=== PATIENT | female | born 1990 | race Caucasian/White ===

== ENCOUNTER → 2016-09-02 | Outpatient (CLI) | payer OTHER, MEDICAID ==
[2016-09-02 11:49] LABS: ABSOLUTE BASOPHILS # (AUTO) 0.1 10^3/uL (0.0-0.2); ABSOLUTE EOSINOPHILS # (AUTO) 0.1 10^3/uL (0.0-0.6); ABSOLUTE LYMPHOCYTES (AUTO) 1.5 10^3/uL (0.5-4.7); ABSOLUTE MONOCYTES (AUTO) 0.6 10^3/uL (0.1-1.4); ABSOLUTE NEUT (AUTO) 6.7 10^3/uL (1.7-8.2); BASOPHILS % (AUTO) 0.8 % (0-2); EOSINOPHILS % (AUTO) 1.3 % (0-6); HEMATOCRIT 41.9 % (36.0-47.0); HEMOGLOBIN 13.8 g/dL (12.0-15.5); HGB HCT DIFFERENCE -0.5; LYMPHOCYTES % (AUTO) 16.7 % (13-45); MEAN CORPUSCULAR HEMOGLOBIN 31.8 pg (27.0-33.4); MEAN CORPUSCULAR VOLUME 96 fl (80-97); MONOCYTES % (AUTO) 6.3 % (3-13); RED BLOOD COUNT 4.34 10^6/uL (3.72-5.28); RED CELL DISTRIBUTION WIDTH 14.9 % (11.5-14.0); SEGMENTED NEUTROPHILS % (AUTO) 74.9 % (42-78); WHITE BLOOD COUNT 8.9 10^3/uL (4.0-10.5)
[2016-09-02 12:22] LABS: CHOLESTEROL 184.29 mg/dL (0-200); Direct HDL 95 mg/dL (>40); GLUCOSE 74 mg/dL (75-110); TRIGLYCERIDES 163 mg/dL (<150); URIC ACID 7.3 mg/dL (2.5-6.2)
[2016-09-02 12:33] LABS: DIRECT LDL 73 mg/dL (<100)
[2016-09-02 12:38] LABS: VLDL CHOLESTEROL 32.6 mg/dL (10-31)
[2016-09-02 12:48] LABS: THYROID STIMULATING HORMONE 6.35 uIU/mL (0.47-4.68)
[2016-09-06 07:12] LABS: SELENIUM WHOLE BLOOD 230 ug/L (100-340)
== END ==
LOC: OD 09:52
PROVIDERS: ATTEND Medical Genetics Clinical Genetics (M.D.)
DX: Q90.9 Down syndrome, unspecified (principal); E03.9 Hypothyroidism, unspecified; E78.5 Hyperlipidemia, unspecified
CPT/HCPCS: 36415; 80061; 82652; 82947; 84255; 84439; 84443; 84480; 84550; 84590; 84630; 85025

== ENCOUNTER 2017-06-12 19:29 | Emergency (ER) | payer OTHER, MEDICAID ==
[2017-06-12 19:54] VITALS: BP 129/59
--- NOTE | 2017-06-12 21:04 | ER Document Report ---
ED Seizure - General Chief Complaint: Nausea/Vomiting Stated Complaint: VOMITING,HEADACHE Time Seen by Provider: 06/12/17 20:18 Mode of Arrival: Ambulatory Information source: Patient, Parent Notes: Mother states that patient was sitting at the dinner table around 630 this evening and her right hand started to shake. Mother states that patient fell over the table and was not responding to her. Mother states that she sat the patient up and then she vomited a small amount. Mother states that patient did not initially respond normally after this shaking episode. Patient was incontinent of urine at that time. Mother denies any history of illness, seizures or recent medication changes. - HPI Patient complains to provider of: First seizure. No: History of seizures Pain Level: Denies Character of seizure: Focal shaking, Incontinent bladder Post-ictal symptoms: Confusion - Initial Injuries: None - Related Data Allergies/Adverse Reactions: No Known Allergies Allergy (Unverified 05/29/16 01:34) Past Medical History - General Information source: Patient, Parent - Social History Smoking Status: Never Smoker Frequency of alcohol use: None Drug Abuse: None Occupation: [employer] Lives with: Family Family History: Reviewed & Not Pertinent - Medical History Medical History: Other - Down syndrome Endocrine Medical History: Reports: Hx Hypothyroidism GI Medical History: Reports: Hx Gastroesophageal Reflux Disease Past Surgical History: Reports: Hx Cardiac Surgery, Hx Cholecystectomy, Hx Myringotomy Review of Systems - Review of Systems Constitutional: No symptoms reported. denies: Fever, Recent illness EENT: No symptoms reported Cardiovascular: No symptoms reported. denies: Chest pain Respiratory: No symptoms reported. denies: Cough, Short of breath Gastrointestinal: Vomiting. denies: Abdominal pain Genitourinary: No symptoms reported Female Genitourinary: No symptoms reported Musculoskeletal: No symptoms reported Skin: No symptoms reported Hematologic/Lymphatic: No symptoms reported Neurological/Psychological: Seizure, Lost consciousness Physical Exam - Vital signs Vitals: Temp Pulse Resp BP Pulse Ox 98.1 F 83 18 129/59 H 100 06/12/17 19:53 06/12/17 19:53 06/12/17 19:53 06/12/17 19:53 06/12/17 19:53 - General General appearance: Appears well, Alert In distress: None - HEENT Head: Normocephalic, Atraumatic. No: [place]'s eyes Eyes: Normal Conjunctiva: Normal Pupils: PERRL Ears: Normal External canal: Normal Tympanic membrane: Normal Nasal: Normal Mouth/Lips: Normal Mucous membranes: Normal Pharynx: Normal. No: Erythema, Exudate Neck: Normal, Supple. No: Lymphadenopathy, Meningismus - Respiratory Respiratory status: No respiratory distress Chest status: Nontender Breath sounds: Normal. No: Rales, Rhonchi, Stridor, Wheezing Chest palpation: Normal - Cardiovascular Rhythm: Regular Heart sounds: S1 appreciated, S2 appreciated Murmur: No - Abdominal Inspection: Obese Distension: No distension Bowel sounds: Normal Tenderness: Nontender Organomegaly: No organomegaly - Back Back: Normal, Nontender. No: CVA tenderness, Vertebra tenderness - Extremities General upper extremity: Normal inspection, Normal ROM General lower extremity: Normal inspection, Normal ROM - Neurological Neuro grossly intact: Yes Cognition: Normal Kyleigh Coma Scale Eye Opening: Spontaneous [place] Coma Scale Verbal: Oriented Kyleigh Coma Scale Motor: Obeys Commands Kyleigh Coma Scale Total: 15 - Psychological Associated symptoms: Normal affect, Normal mood - Skin Skin Temperature: Warm Skin Moisture: Dry Skin Color: Normal Course - Re-evaluation Re-evalutation: 06/12/17 21:[address] Lara regarding patient presentation, agrees with plan for CT imaging of the head. 06/12/17 23:23 Patient presently denies any complaints. Patient denies any headache, abdominal pain or any additional episodes of incontinence. Patient without any additional shaking episodes. 06/12/17 23:[address] Lara, discussed patient's diagnostic test results and physical exam findings. No additional testing advised. - Vital Signs Vital signs: Temp Pulse Resp BP Pulse Ox 98.1 F 83 18 129/59 H 100 06/12/17 19:53 06/12/17 19:53 06/12/17 19:53 06/12/17 19:53 06/12/17 19:53 - Laboratory Result Diagrams: 06/12/17 22:21 06/12/17 22:21 Laboratory results interpreted by me: 06/12/17 06/12/17 06/12/17 22:21 22:21 22:21 WBC 14.8 H RDW 15.0 H Seg Neutrophils % 84.7 H Lymphocytes % 9.7 L Absolute Neutrophils 12.6 H Potassium 5.1 H Direct Bilirubin 0.5 H Urine Ketones TRACE H Labs- Entire Visit 06/12/17 06/12/17 06/12/17 22:21 22:21 22:21 WBC 14.8 H RBC 4.05 Hgb 13.1 Hct 38.6 MCV 95 MCH 32.4 MCHC 34.0 RDW 15.0 H Plt Count 289 Seg Neutrophils % 84.7 H Lymphocytes % 9.7 L Monocytes % 4.6 Eosinophils % 0.2 Basophils % 0.8 Absolute Neutrophils 12.6 H Absolute Lymphocytes 1.4 Absolute Monocytes 0.7 Absolute Eosinophils 0.0 Absolute Basophils 0.1 Sodium 140.0 Potassium 5.1 H Chloride 106 Carbon Dioxide 22 Anion Gap 12 BUN 16 Creatinine 0.89 Est GFR ( Amer) > 60 Est GFR (Non-Af Amer) > 60 Glucose 91 Calcium 9.6 Magnesium 1.9 Total Bilirubin 0.6 Direct Bilirubin 0.5 H Indirect Bilirubin Not Reportable Neonat Total Bilirubin Not Reportable AST 23 ALT 36 Alkaline Phosphatase 122 Total Protein 7.2 Albumin 3.9 Serum HCG, Qual NEGATIVE Urine Color Urine Appearance Urine pH Ur Specific [place] Urine Protein Urine Glucose (UA) Urine Ketones Urine Blood Urine Nitrite Urine Bilirubin Urine Urobilinogen Ur Leukocyte Esterase Urine WBC (Auto) Urine RBC (Auto) Urine Bacteria (Auto) Squamous Epi Cells Auto Urine Mucus (Auto) Urine Ascorbic Acid 06/12/17 22:21 WBC RBC Hgb Hct MCV MCH MCHC RDW Plt Count Seg Neutrophils % Lymphocytes % Monocytes % Eosinophils % Basophils % Absolute Neutrophils Absolute Lymphocytes Absolute Monocytes Absolute Eosinophils Absolute Basophils Sodium Potassium Chloride Carbon Dioxide Anion Gap BUN Creatinine Est GFR ( Amer) Est GFR (Non-Af Amer) Glucose Calcium Magnesium Total Bilirubin Direct Bilirubin Indirect Bilirubin Neonat Total Bilirubin AST ALT Alkaline Phosphatase Total Protein Albumin Serum HCG, Qual Urine Color COLORLESS Urine Appearance CLEAR Urine pH 6.0 Ur Specific [place] 1.003 Urine Protein NEGATIVE Urine Glucose (UA) NEGATIVE Urine Ketones TRACE H Urine Blood NEGATIVE Urine Nitrite NEGATIVE Urine Bilirubin NEGATIVE Urine Urobilinogen NEGATIVE Ur Leukocyte Esterase NEGATIVE Urine WBC (Auto) 1 Urine RBC (Auto) 0 Urine Bacteria (Auto) TRACE Squamous Epi Cells Auto <1 Urine Mucus (Auto) RARE Urine Ascorbic Acid NEGATIVE - Diagnostic Test Radiology reviewed: Reports reviewed Discharge - Discharge Clinical Impression: Seizure Condition: Stable Disposition: HOME, SELF-CARE Instructions: New Seizure ([facility]) Additional Instructions: Return immediately for any new or worsening symptoms Followup with your primary care provider, call tomorrow to make a followup appointment Follow-up with your administrative asst tomorrow as planned Referrals: JOSE FAGAN MD [Primary Care Provider] - Follow up tomorrow PARIS BRANCH MD [ACTIVE STAFF] - Follow up as needed
--- NOTE | 2017-06-12 21:46 | RADIOLOGY REPORT (SQ) ---
EXAM DESCRIPTION: CT HEAD WITHOUT COMPLETED DATE/TIME: 06/12/2017 9:33 pm REASON FOR STUDY: BARRON, ?seizure COMPARISON: None. TECHNIQUE: Axial images acquired through the brain without intravenous contrast. Images reviewed wi th bone, brain and subdural windows. Images stored on PACS. All CT scanners at this facility use dose modulation, iterative reconstruction, and/or weight based d osing when appropriate to reduce radiation dose to as low as reasonably achievable (ALARA). [facility]: Dose Right [facility]: CareDose [facility]: Dose Right [facility]: Teradose 4D [facility]: Smart Technologies RADIATION DOSE: Up-to-date CT equipment and radiation dose reduction techniques were employed. CTDIv ol: 55.2 mGy. DLP: 974 mGy-cm. mGy. LIMITATIONS: None. FINDINGS: VENTRICLES: Normal size and contour. CEREBRUM: No masses. No hemorrhage. No midline shift. No evidence for acute infarction. Normal gra y/white matter differentiation. No areas of low density in the white matter. CEREBELLUM: No masses. No hemorrhage. No alteration of density. No evidence for acute infarction. EXTRAAXIAL SPACES: No fluid collections. No masses. ORBITS AND GLOBE: No intra- or extraconal masses. Normal contour of globe without masses. CALVARIUM: No fracture. PARANASAL SINUSES: No fluid or mucosal thickening. SOFT TISSUES: No mass or hematoma. OTHER: No other significant finding. IMPRESSION: NORMAL BRAIN CT WITHOUT CONTRAST. EVIDENCE OF ACUTE STROKE: NO. COMMENT: Quality ID # [id number]: Final reports with documentation of one or more dose reduction techniques (e.g., Automated exposure control, adjustment of the mA and/or kV according to patient size, use of iterative reconstruction technique) TECHNICAL DOCUMENTATION: JOB ID: [id number]- All Rights Reserved
[2017-06-12 22:32] LABS: ABSOLUTE BASOPHILS # (AUTO) 0.1 10^3/uL (0.0-0.2); ABSOLUTE LYMPHOCYTES (AUTO) 1.4 10^3/uL (0.5-4.7); ABSOLUTE MONOCYTES (AUTO) 0.7 10^3/uL (0.1-1.4); ABSOLUTE NEUT (AUTO) 12.6 10^3/uL (1.7-8.2); BASOPHILS % (AUTO) 0.8 % (0-2); EOSINOPHILS % (AUTO) 0.2 % (0-6); HEMATOCRIT 38.6 % (36.0-47.0); HEMOGLOBIN 13.1 g/dL (12.0-15.5); HGB HCT DIFFERENCE 0.7; LYMPHOCYTES % (AUTO) 9.7 % (13-45); MEAN CORPUSCULAR HEMOGLOBIN 32.4 pg (27.0-33.4); MEAN CORPUSCULAR VOLUME 95 fl (80-97); MONOCYTES % (AUTO) 4.6 % (3-13); RED BLOOD COUNT 4.05 10^6/uL (3.72-5.28); SEGMENTED NEUTROPHILS % (AUTO) 84.7 % (42-78); WHITE BLOOD COUNT 14.8 10^3/uL (4.0-10.5)
[2017-06-12 22:40] LABS: APPEARANCE,URINE CLEAR; BILIRUBIN,URINE NEGATIVE (NEGATIVE); GLUCOSE, URINE NEGATIVE (NEGATIVE); KETONES,URINE TRACE mg/dL (NEGATIVE); LEUKOCYTE ESTERASE,URINE NEGATIVE (NEGATIVE); NITRITE,URINE NEGATIVE (NEGATIVE); PROTEIN,URINE NEGATIVE (NEGATIVE); URINE SPECIFIC GRAVITY 1.003; UROBILINOGEN,URINE NEGATIVE mg/dL (<2.0)
[2017-06-12 22:52] LABS: ALANINE AMINOTRANSFERASE 36 U/L (9-52); ALBUMIN 3.9 g/dL (3.5-5.0); ALKALINE PHOSPHATASE 122 U/L (38-126); ANION GAP 12 (5-19); ASPARTATE AMINO TRANSFERASE 23 U/L (14-36); BILIRUBIN,DIRECT 0.5 mg/dL (0.0-0.4); BILIRUBIN,TOTAL 0.6 mg/dL (0.2-1.3); BLOOD UREA NITROGEN 16 mg/dL (7-20); CALCIUM 9.6 mg/dL (8.4-10.2); CARBON DIOXIDE 22 mmol/L (22-30); CHLORIDE 106 mmol/L (98-107); CREATININE RESULT 0.89 mg/dL (0.52-1.25); GLUCOSE 91 mg/dL (75-110); MAGNESIUM 1.9 mg/dL (1.6-2.3); POTASSIUM 5.1 mmol/L (3.6-5.0); TOTAL PROTEIN 7.2 g/dL (6.3-8.2)
--- NOTE | 2017-06-12 23:53 | EKG REPORT ---
SEVERITY:- ABNORMAL ECG - SINUS RHYTHM RBBB AND LAFB : Confirmed by: Donna Wall 12-Jun-2017 23:52:30
== END 2017-06-13 00:36 | disposition home or self-care (01) ==
LOC: ER 19:29
DX: R56.9 Unspecified convulsions (principal); R11.10 Vomiting, unspecified; R32 Unspecified urinary incontinence; Q90.9 Down syndrome, unspecified; Z90.49 Acquired absence of other specified parts of digestive tract
CPT/HCPCS: 36415; 70450; 80053; 81001; 83735; 84703; 85025; 93005; 93010; 99284

== ENCOUNTER 2017-09-05 12:11 | Emergency (ER) | payer OTHER, MEDICAID ==
--- NOTE | 2017-09-05 13:18 | EKG REPORT ---
SEVERITY:- ABNORMAL ECG - SINUS RHYTHM RBBB AND LAFB PROBABLE LEFT VENTRICULAR HYPERTROPHY : Confirmed by: Mirtha Treviño MD 05-Sep-2017 13:17:14
--- NOTE | 2017-09-05 13:18 | ER Document Report ---
ED Medical Screen (RME) - General Chief Complaint: Chest Pain Stated Complaint: CHEST PAIN Time Seen by Provider: 09/05/17 13:14 Mode of Arrival: Ambulatory Information source: Parent Notes: Patient is a 27-year-old Down syndrome patient who presents to the ER today for chest palpitations yesterday and earlier today. Patient was diagnosed with a "beta blockage" and "3 leaky valves." Per mom recently by coyote hunter. Patient denies any chest pain, but does not communicate very well what she is feeling. Mom states that she has been very tired and not acting like herself. TRAVEL OUTSIDE OF THE [place] IN LAST 30 DAYS: No - Related Data Allergies/Adverse Reactions: No Known Allergies Allergy (Unverified 05/29/16 01:34) Past Medical History - General Information source: Patient Endocrine Medical History: Reports: Hx Hypothyroidism GI Medical History: Reports: Hx Gastroesophageal Reflux Disease Past Surgical History: Reports: Hx Cardiac Surgery, Hx Cholecystectomy, Hx Myringotomy Review of Systems - Review of Systems Cardiovascular: See HPI Physical Exam - Vital signs Vitals: Temp Pulse Resp BP Pulse Ox 97.9 F 69 20 123/74 96 09/05/17 12:24 09/05/17 12:24 09/05/17 12:24 09/05/17 12:24 09/05/17 12:24 - Notes Notes: PHYSICAL EXAMINATION: GENERAL: Well-appearing and in no acute distress. LUNGS: CTAB and equal. No wheezes rales or rhonchi. HEART: Regular rate and rhythm without murmurs Course - Vital Signs Vital signs: Temp Pulse Resp BP Pulse Ox 97.9 F 69 20 123/74 96 09/05/17 12:24 09/05/17 12:24 09/05/17 12:24 09/05/17 12:24 09/05/17 12:24
--- NOTE | 2017-09-05 13:51 | RADIOLOGY REPORT (SQ) ---
EXAM DESCRIPTION: CHEST PA/LAT COMPLETED DATE/TIME: 09/05/2017 1:33 pm REASON FOR STUDY: chest palpitations COMPARISON: None. NUMBER OF VIEWS: Two view. TECHNIQUE: Frontal and lateral radiographic views of the chest acquired. LIMITATIONS: None. FINDINGS: LUNGS AND PLEURA: No opacities, masses or pneumothorax. No pleural effusion. MEDIASTINUM AND HILAR STRUCTURES: No masses or contour abnormalities. HEART AND VASCULATURE: Heart normal size. No evidence for failure. BONY STRUCTURES: No acute findings. HARDWARE: None. OTHER: No other significant finding. IMPRESSION: NO SIGNIFICANT RADIOGRAPHIC FINDING IN THE CHEST. TECHNICAL DOCUMENTATION: JOB ID: [id number] [employer] [facility] [employer]- All Rights Reserved
[2017-09-05 14:14] LABS: APPEARANCE,URINE SLIGHTLY-CLOUDY; BILIRUBIN,URINE NEGATIVE (NEGATIVE); COLOR,URINE YELLOW; GLUCOSE, URINE NEGATIVE (NEGATIVE); KETONES,URINE NEGATIVE (NEGATIVE); LEUKOCYTE ESTERASE,URINE SMALL (NEGATIVE); NITRITE,URINE NEGATIVE (NEGATIVE); PROTEIN,URINE NEGATIVE (NEGATIVE); URINE SPECIFIC GRAVITY 1.019; UROBILINOGEN,URINE NEGATIVE mg/dL (<2.0)
[2017-09-05 14:59] LABS: ABSOLUTE BASOPHILS # (AUTO) 0.1 10^3/uL (0.0-0.2); ABSOLUTE EOSINOPHILS # (AUTO) 0.1 10^3/uL (0.0-0.6); ABSOLUTE LYMPHOCYTES (AUTO) 1.5 10^3/uL (0.5-4.7); ABSOLUTE MONOCYTES (AUTO) 0.6 10^3/uL (0.1-1.4); ABSOLUTE NEUT (AUTO) 7.4 10^3/uL (1.7-8.2); BASOPHILS % (AUTO) 1.1 % (0-2); EOSINOPHILS % (AUTO) 0.9 % (0-6); HEMATOCRIT 39.9 % (36.0-47.0); HEMOGLOBIN 13.5 g/dL (12.0-15.5); LYMPHOCYTES % (AUTO) 15.3 % (13-45); MEAN CORPUSCULAR HGB CONC 33.9 g/dL (32.0-36.0); MEAN CORPUSCULAR VOLUME 95 fl (80-97); MONOCYTES % (AUTO) 5.7 % (3-13); PLATELET COUNT 283 10^3/uL (150-450); RED BLOOD COUNT 4.22 10^6/uL (3.72-5.28); RED CELL DISTRIBUTION WIDTH 15.4 % (11.5-14.0); TOTAL CELLS COUNTED % (AUTO) 100 %; WHITE BLOOD COUNT 9.7 10^3/uL (4.0-10.5)
[2017-09-05 15:20] LABS: ALANINE AMINOTRANSFERASE 23 U/L (9-52); ALKALINE PHOSPHATASE 113 U/L (38-126); ANION GAP 11 (5-19); ASPARTATE AMINO TRANSFERASE 22 U/L (14-36); BILIRUBIN,DIRECT 0.3 mg/dL (0.0-0.4); BILIRUBIN,TOTAL 0.3 mg/dL (0.2-1.3); BLOOD UREA NITROGEN 17 mg/dL (7-20); CALCIUM 9.4 mg/dL (8.4-10.2); CARBON DIOXIDE 23 mmol/L (22-30); CHLORIDE 106 mmol/L (98-107); CREATINE KINASE 22 U/L (30-135); GLUCOSE 83 mg/dL (75-110); MAGNESIUM 1.8 mg/dL (1.6-2.3); POTASSIUM 4.5 mmol/L (3.6-5.0); SODIUM 139.9 mmol/L (137-145); TOTAL PROTEIN 7.3 g/dL (6.3-8.2)
[2017-09-05 15:32] LABS: CREATINE KINASE MB < 0.22 ng/mL (<4.55); TROPONIN I < 0.012 ng/mL
--- NOTE | 2017-09-05 15:58 | ER Document Report ---
ED Cardiac - General Chief Complaint: Chest Pain Stated Complaint: CHEST PAIN Time Seen by Provider: 09/05/17 13:14 Mode of Arrival: Ambulatory Information source: Parent Notes: Patient is a 27-year-old Down syndrome patient who presents to the ER today for chest palpitations yesterday and earlier today. Patient was diagnosed with a "beta blockage" and "3 leaky valves." Per mom recently by chief hospital administrator. Patient denies any chest pain, but does not communicate very well what she is feeling. Mom states that she has been very tired and not acting like herself. TRAVEL OUTSIDE OF THE [place] IN LAST 30 DAYS: No - Related Data Allergies/Adverse Reactions: No Known Allergies Allergy (Unverified 05/29/16 01:34) Past Medical History - General Information source: Parent - Social History Smoking Status: Never Smoker Chew tobacco use (# tins/day): No Frequency of alcohol use: None Drug Abuse: None Family History: Reviewed & Not Pertinent Patient has suicidal ideation: No Patient has homicidal ideation: No Neurological Medical History: Reports: Hx Seizures Endocrine Medical History: Reports: Hx Hypothyroidism Renal/ Medical History: Denies: Hx Peritoneal Dialysis GI Medical History: Reports: Hx Gastroesophageal Reflux Disease Past Surgical History: Reports: Hx Cardiac Surgery, Hx Cholecystectomy, Hx Myringotomy Review of Systems - Review of Systems Constitutional: No symptoms reported EENT: No symptoms reported Cardiovascular: See HPI Respiratory: No symptoms reported Gastrointestinal: No symptoms reported Genitourinary: No symptoms reported Female Genitourinary: No symptoms reported Musculoskeletal: No symptoms reported Skin: No symptoms reported Hematologic/Lymphatic: No symptoms reported Neurological/Psychological: No symptoms reported Physical Exam - Vital signs Vitals: Temp Pulse Resp BP Pulse Ox 97.9 F 69 20 123/74 96 09/05/17 12:24 09/05/17 12:24 09/05/17 12:24 09/05/17 12:24 09/05/17 12:24 Course - Vital Signs Vital signs: Temp Pulse Resp BP Pulse Ox 98.6 F 76 18 132/78 H 98 09/05/17 16:02 09/05/17 16:02 09/05/17 16:02 09/05/17 16:02 09/05/17 16:02 - Laboratory Result Diagrams: 09/05/17 14:15 09/05/17 14:15 Laboratory results interpreted by me: 09/05/17 09/05/17 09/05/17 13:37 14:15 14:15 RDW 15.4 H Creatine Kinase 22 L Ur Leukocyte Esterase SMALL H Urine Ascorbic Acid 40 H Discharge - Discharge Clinical Impression: Heart palpitations Condition: Stable Disposition: HOME, SELF-CARE Instructions: Palpitations (Irregular or Rapid Heartrate) ([facility]) Additional Instructions: Return immediately for any new or worsening symptoms. Follow up with primary care provider, call tomorrow to make followup appointment.
[2017-09-05 16:07] VITALS: BP 132/78
== END 2017-09-05 16:04 | disposition home or self-care (01) ==
LOC: ER 12:11
DX: R07.9 Chest pain, unspecified (principal); R00.2 Palpitations; E03.9 Hypothyroidism, unspecified; K21.9 Gastro-esophageal reflux disease without esophagitis; Q90.9 Down syndrome, unspecified; Z90.49 Acquired absence of other specified parts of digestive tract
CPT/HCPCS: 36415; 71046; 80053; 81001; 82550; 82553; 83735; 84484; 85025; 93005; 93010; 99285

== ENCOUNTER 2017-09-26 10:04 | Emergency (ER) | payer OTHER, MEDICAID ==
--- NOTE | 2017-09-26 10:53 | ER Document Report ---
ED Medical Screen (RME) - General Chief Complaint: Palpitations Stated Complaint: HEART PALPATATIONS Time Seen by Provider: 09/26/17 10:45 Notes: RME DISCLOSURE I have seen this patient as part of a Rapid Medical Evaluation and, if applicable, placed any initially appropriate orders. The patient will be seen and fully evaluated, including a full history and physical exam, by a provider ( in Main ED or Fast Track) when a room becomes available. 27-year-old female here with parents who state that they were driving to the dentist when the patient suddenly started to have tremors and started complaining of palpitations. Her head was leaning off to one side and they thought she was having a seizure. She has been having these episodes for the past few months and initially was diagnosed with seizures and placed on seizure medication however her pourer buggy ladle took her off the seizure medication in thinking that this was possibly arrhythmia related. She has recently been on a Holter monitor for this. Today, when she was having this episode, they took her straight to the pourer buggy ladle office and he, Dr. Choudhury, came outside and told them to come straight here to the emergency department. He did provide his cell phone number to the mother for the main ED provider to give him a call if needed. EXAM Systolic murmur present Clear to auscultation bilaterally TRAVEL OUTSIDE OF THE [place] IN LAST 30 DAYS: No - Related Data Allergies/Adverse Reactions: Sulfa (Sulfonamide Antibiotics) Allergy (Verified 09/26/17 10:05) Past Medical History Neurological Medical History: Reports: Hx Seizures Endocrine Medical History: Reports: Hx Hypothyroidism Renal/ Medical History: Denies: Hx Peritoneal Dialysis GI Medical History: Reports: Hx Gastroesophageal Reflux Disease Past Surgical History: Reports: Hx Cardiac Surgery, Hx Cholecystectomy, Hx Myringotomy Physical Exam - Vital signs Vitals: Temp Pulse Resp BP Pulse Ox 98.1 F 72 18 129/72 H 97 09/26/17 10:09/26/17 10:09/26/17 10:09/26/17 10:09/26/17 10:18 Course - Vital Signs Vital signs: Temp Pulse Resp BP Pulse Ox 98.1 F 72 18 129/72 H 97 09/26/17 10:18 09/26/17 10:18 09/26/17 10:18 09/26/17 10:18 09/26/17 10:18
[2017-09-26 11:51] LABS: ABSOLUTE BASOPHILS # (AUTO) 0.1 10^3/uL (0.0-0.2); ABSOLUTE LYMPHOCYTES (AUTO) 0.9 10^3/uL (0.5-4.7); ABSOLUTE MONOCYTES (AUTO) 0.4 10^3/uL (0.1-1.4); ABSOLUTE NEUT (AUTO) 8.6 10^3/uL (1.7-8.2); BASOPHILS % (AUTO) 1.1 % (0-2); EOSINOPHILS % (AUTO) 0.4 % (0-6); HEMATOCRIT 40.3 % (36.0-47.0); HEMOGLOBIN 13.8 g/dL (12.0-15.5); MEAN CORPUSCULAR HEMOGLOBIN 32.5 pg (27.0-33.4); MEAN CORPUSCULAR HGB CONC 34.3 g/dL (32.0-36.0); MEAN CORPUSCULAR VOLUME 95 fl (80-97); PLATELET COUNT 272 10^3/uL (150-450); RED BLOOD COUNT 4.25 10^6/uL (3.72-5.28); RED CELL DISTRIBUTION WIDTH 14.8 % (11.5-14.0); SEGMENTED NEUTROPHILS % (AUTO) 85.5 % (42-78); TOTAL CELLS COUNTED % (AUTO) 100 %; WHITE BLOOD COUNT 10.1 10^3/uL (4.0-10.5)
[2017-09-26 12:21] LABS: ANION GAP 7 (5-19); BLOOD UREA NITROGEN 15 mg/dL (7-20); CALCIUM 9.7 mg/dL (8.4-10.2); CARBON DIOXIDE 23 mmol/L (22-30); CHLORIDE 108 mmol/L (98-107); GLUCOSE 89 mg/dL (75-110); MAGNESIUM 1.8 mg/dL (1.6-2.3); PHOSPHORUS 4.1 mg/dL (2.5-4.5); POTASSIUM 4.5 mmol/L (3.6-5.0)
--- NOTE | 2017-09-26 13:16 | RADIOLOGY REPORT (SQ) ---
EXAM DESCRIPTION: CHEST PA/LAT COMPLETED DATE/TIME: 09/26/2017 1:04 pm REASON FOR STUDY: palpitation COMPARISON: 09/05/2017 NUMBER OF VIEWS: Two view. TECHNIQUE: Frontal and lateral radiographic views of the chest acquired. LIMITATIONS: None. FINDINGS: LUNGS AND PLEURA: No opacities, masses or pneumothorax. No pleural effusion. MEDIASTINUM AND HILAR STRUCTURES: No masses or contour abnormalities. HEART AND VASCULATURE: Heart normal size. No evidence for failure. BONY STRUCTURES: No acute findings. HARDWARE: None. OTHER: No other significant finding. IMPRESSION: NO SIGNIFICANT RADIOGRAPHIC FINDING IN THE CHEST. TECHNICAL DOCUMENTATION: JOB ID: [id number] [employer]- All Rights Reserved
--- NOTE | 2017-09-26 14:07 | ER Document Report ---
ED General - General Chief Complaint: Palpitations Stated Complaint: HEART PALPATATIONS Time Seen by Provider: 09/26/17 10:45 TRAVEL OUTSIDE OF THE [place] IN LAST 30 DAYS: No - HPI Patient complains to provider of: Heart palpitations Notes: Patient coming in for evaluation of heart palpitations and what looks to be a near syncopal episode. According to the mother occurred while was at the corrections cadet's office who requested the patient come to the ER for further evaluation. Patient has a history of developmental delay cerebral palsy and multiple cardiac surgeries. Patient has a history of these palpations ongoing for approximately about 3 weeks with Holter monitors. No abnormalities present. Denies any changes any recent medications. Denies fevers chills nausea vomiting diarrhea denies any recent travel. States episode at the office patient started leaning to one side became pale patient complains about "shaking of her heart" patient otherwise nontoxic looking upon my evaluation - Related Data Allergies/Adverse Reactions: Sulfa (Sulfonamide Antibiotics) Allergy (Verified 09/26/17 10:05) Past Medical History - Social History Smoking Status: Never Smoker Frequency of alcohol use: None Drug Abuse: None Family History: Reviewed & Not Pertinent Patient has suicidal ideation: No Patient has homicidal ideation: No Neurological Medical History: Reports: Hx Seizures Endocrine Medical History: Reports: Hx Hypothyroidism Renal/ Medical History: Denies: Hx Peritoneal Dialysis GI Medical History: Reports: Hx Gastroesophageal Reflux Disease Past Surgical History: Reports: Hx Cardiac Surgery, Hx Cholecystectomy, Hx Myringotomy, Hx Tonsillectomy - T&A Review of Systems - Review of Systems Constitutional: No symptoms reported EENT: No symptoms reported Cardiovascular: Palpitations Respiratory: No symptoms reported Gastrointestinal: No symptoms reported Genitourinary: No symptoms reported Female Genitourinary: No symptoms reported Musculoskeletal: No symptoms reported Skin: No symptoms reported Hematologic/Lymphatic: No symptoms reported Neurological/Psychological: No symptoms reported Physical Exam - Vital signs Vitals: Temp Pulse Resp BP Pulse Ox 98.1 F 72 18 129/72 H 97 09/26/17 10:18 09/26/17 10:18 09/26/17 10:18 09/26/17 10:18 09/26/17 10:18 Interpretation: Normal - General General appearance: Appears well, Alert - HEENT Head: Normocephalic, Atraumatic Eyes: Normal Pupils: PERRL - Respiratory Respiratory status: No respiratory distress Chest status: Nontender Breath sounds: Normal Chest palpation: Normal - Cardiovascular Rhythm: Regular Heart sounds: Normal auscultation Murmur: No Systolic murmur grade 1-6: 3 - Abdominal Inspection: Normal Distension: No distension Bowel sounds: Normal Tenderness: Nontender Organomegaly: No organomegaly - Back Back: Normal, Nontender - Extremities General upper extremity: Normal inspection, Nontender, Normal color, Normal ROM , Normal temperature General lower extremity: Normal inspection, Nontender, Normal color, Normal ROM , Normal temperature, Normal weight bearing. No: Natan's sign - Neurological Neuro grossly intact: Yes Cognition: Normal Orientation: AAOx4 Kyleigh Coma Scale Eye Opening: Spontaneous [place] Coma Scale Verbal: Oriented [place] Coma Scale Motor: Obeys Commands [place] Coma Scale Total: 15 Speech: Normal Motor strength normal: LUE, RUE, LLE, RLE Sensory: Normal - Psychological Associated symptoms: Normal affect, Normal mood - Skin Skin Temperature: Warm Skin Moisture: Dry Skin Color: Normal Course - Re-evaluation Re-evalutation: 09/27/17 14:21 No abnormalities seen laboratory studies or EKG. No acute changes. Did discuss at length with Dr. Choudhury cardiology states that he will follow up with the patient on the more likely patient will see carding supervisor for further evaluation. Does relate this to the parents they were grateful further care and discharged home. - Vital Signs Vital signs: Temp Pulse Resp BP Pulse Ox 98.5 F 71 22 H 116/73 97 09/26/17 14:16 09/26/17 14:16 09/26/17 14:16 09/26/17 14:16 09/26/17 14:16 - Laboratory Result Diagrams: 09/26/17 11:38 09/26/17 11:38 Laboratory results interpreted by me: 09/26/17 09/26/17 09/26/17 11:38 11:38 11:38 RDW 14.8 H Seg Neutrophils % 85.5 H Lymphocytes % 9.0 L Absolute Neutrophils 8.6 H Chloride 108 H TSH 9.54 H Discharge - Discharge Clinical Impression: Palpitations Condition: Good Disposition: HOME, SELF-CARE Instructions: Palpitations (Irregular or Rapid Heartrate) ([facility]) Additional Instructions: I discussed your results and your case with your corrections cadet Dr. Shaw at this time he recommends that she follow-up on Monday at 10:00 in the [place] office he will call you later today. If you have any problems or concerns before that please call him on his cell phone number. sHe may continue home medications and home activities as usual. Referrals: JOSE FAGAN MD [Primary Care Provider] - Follow up as needed
[2017-09-26 14:20] VITALS: BP 116/73
--- NOTE | 2017-09-27 09:39 | EKG REPORT ---
SEVERITY:- ABNORMAL ECG - SINUS RHYTHM RBBB AND LAFB : Confirmed by: Donna Wall 27-Sep-2017 09:38:22
== END 2017-09-26 14:20 | disposition home or self-care (01) ==
LOC: ER 10:04
DX: R00.2 Palpitations (principal); G80.9 Cerebral palsy, unspecified; Z98.890 Other specified postprocedural states; Z88.2 Allergy status to sulfonamides
CPT/HCPCS: 36415; 71046; 80048; 83735; 84100; 84443; 84484; 85025; 93005; 93010; 99285

== ENCOUNTER → 2017-11-08 | Outpatient (CLI) | payer OTHER, MEDICAID ==
--- NOTE | 2017-11-08 17:38 | RADIOLOGY REPORT (SQ) ---
EXAM DESCRIPTION: CHEST PA/LATERAL COMPLETED DATE/TIME: 11/08/2017 5:10 pm REASON FOR STUDY: COUGH COMPARISON: 09/26/2017 EXAM PARAMETERS: NUMBER OF VIEWS: two views TECHNIQUE: Digital Frontal and Lateral radiographic views of the chest acquired. RADIATION DOSE: NA LIMITATIONS: none FINDINGS: LUNGS AND PLEURA: There is minimal haziness in the right base on the PA view. No infiltra te is seen on the lateral view. MEDIASTINUM AND HILAR STRUCTURES: No masses or contour abnormalities. HEART AND VASCULAR STRUCTURES: Heart normal size. No evidence for failure. BONES: No acute findings. HARDWARE: Loop recorder. Sternotomy wires. OTHER: No other significant finding. IMPRESSION: Cannot exclude a minimal infiltrate in the right middle or lower lobe. TECHNICAL DOCUMENTATION: JOB ID: [id number] [employer]- All Rights Reserved Reading location - IP/workstation name: [email or web address]
[2017-11-08 18:51] LABS: ALANINE AMINOTRANSFERASE 37 U/L (9-52); ALBUMIN 4.1 g/dL (3.5-5.0); ALKALINE PHOSPHATASE 127 U/L (38-126); ANION GAP 13 (5-19); ASPARTATE AMINO TRANSFERASE 33 U/L (14-36); BILIRUBIN,DIRECT 0.2 mg/dL (0.0-0.4); BILIRUBIN,TOTAL 0.4 mg/dL (0.2-1.3); BLOOD UREA NITROGEN 16 mg/dL (7-20); CALCIUM 9.5 mg/dL (8.4-10.2); CARBON DIOXIDE 24 mmol/L (22-30); CHLORIDE 107 mmol/L (98-107); GLUCOSE 86 mg/dL (75-110); POTASSIUM 4.1 mmol/L (3.6-5.0); SODIUM 143.6 mmol/L (137-145); TOTAL PROTEIN 7.5 g/dL (6.3-8.2)
[2017-11-08 19:00] LABS: URIC ACID 6.5 mg/dL (2.5-6.2)
[2017-11-08 19:08] LABS: FREE T4 (FREE THYROXINE) 1.24 ng/dL (0.78-2.19)
[2017-11-08 19:21] LABS: THYROID STIMULATING HORMONE 5.55 uIU/mL (0.47-4.68)
--- NOTE | 2017-11-09 09:59 | RADIOLOGY REPORT (SQ) ---
EXAM DESCRIPTION: SOFT TISSUE NECK COMPLETED DATE/TIME: 11/08/2017 5:10 pm REASON FOR STUDY: ACUTE PHARYNGITIS, UNSPECIFIED R05 COUGH J02.9 ACUTE PHARYNGITIS, UNSPECIFIED COMPARISON: None. NUMBER OF VIEWS: Two views. TECHNIQUE: AP and lateral radiographic image of the soft tissues of the neck. LIMITATIONS: None. FINDINGS: EPIGLOTTIS: Normal. Contour normal. Aryepiglottic folds normal. PREVERTEBRAL SOFT TISSUES: Normal. No soft tissue swelling. SUBGLOTTIC AREA: Normal. No narrowing. RETROPHARYNGEAL SPACE: Normal. No soft tissue masses. BONES: No significant findings. LUNG APICES: Normal. OTHER: No radiopaque foreign body. No other significant finding. IMPRESSION: NEGATIVE STUDY OF THE SOFT TISSUES OF THE NECK. TECHNICAL DOCUMENTATION: JOB ID: [id number] [employer]- All Rights Reserved Reading location - IP/workstation name: [email or web address]
[2017-11-09 15:05] LABS: ABSOLUTE EOSINOPHILS # (AUTO) 0.2 10^3/uL (0.0-0.6); ABSOLUTE MONOCYTES (AUTO) 0.5 10^3/uL (0.1-1.4); ABSOLUTE NEUT (AUTO) 5.7 10^3/uL (1.7-8.2); BASOPHILS % (AUTO) 0.5 % (0-2); EOSINOPHILS % (AUTO) 2.2 % (0-6); HEMATOCRIT 41.8 % (36.0-47.0); HEMOGLOBIN 14.2 g/dL (12.0-15.5); LYMPHOCYTES % (AUTO) 13.1 % (13-45); MEAN CORPUSCULAR HEMOGLOBIN 31.8 pg (27.0-33.4); MEAN CORPUSCULAR HGB CONC 33.8 g/dL (32.0-36.0); MEAN CORPUSCULAR VOLUME 94 fl (80-97); MONOCYTES % (AUTO) 6.4 % (3-13); PLATELET COUNT 283 10^3/uL (150-450); RED BLOOD COUNT 4.45 10^6/uL (3.72-5.28); RED CELL DISTRIBUTION WIDTH 14.9 % (11.5-14.0); SEGMENTED NEUTROPHILS % (AUTO) 77.8 % (42-78); TOTAL CELLS COUNTED % (AUTO) 100 %; WHITE BLOOD COUNT 7.4 10^3/uL (4.0-10.5)
[2017-11-09 15:12] LABS: ABSOLUTE EOSINOPHILS # (AUTO) 0.2 10^3/uL (0.0-0.6); ABSOLUTE MONOCYTES (AUTO) 0.5 10^3/uL (0.1-1.4); ABSOLUTE NEUT (AUTO) 5.7 10^3/uL (1.7-8.2); BASOPHILS % (AUTO) 0.5 % (0-2); EOSINOPHILS % (AUTO) 2.2 % (0-6); HEMATOCRIT 41.8 % (36.0-47.0); HEMOGLOBIN 14.2 g/dL (12.0-15.5); LYMPHOCYTES % (AUTO) 13.1 % (13-45); MEAN CORPUSCULAR HEMOGLOBIN 31.8 pg (27.0-33.4); MEAN CORPUSCULAR HGB CONC 33.8 g/dL (32.0-36.0); MEAN CORPUSCULAR VOLUME 94 fl (80-97); MONOCYTES % (AUTO) 6.4 % (3-13); PLATELET COUNT 283 10^3/uL (150-450); RED BLOOD COUNT 4.45 10^6/uL (3.72-5.28); RED CELL DISTRIBUTION WIDTH 14.9 % (11.5-14.0); SEGMENTED NEUTROPHILS % (AUTO) 77.8 % (42-78); TOTAL CELLS COUNTED % (AUTO) 100 %; WHITE BLOOD COUNT 7.4 10^3/uL (4.0-10.5)
[2017-11-11 12:24] LABS: VITAMIN D 1,25 DIHYDROXY 66.1 pg/mL (19.9-79.3)
== END ==
LOC: RAD 16:51
PROVIDERS: ATTEND Medical Genetics Clinical Genetics (M.D.)
DX: J02.9 Acute pharyngitis, unspecified (principal); R05 Cough; E03.9 Hypothyroidism, unspecified; Q24.9 Congenital malformation of heart, unspecified; Q90.9 Down syndrome, unspecified
CPT/HCPCS: 36415; 70360; 71046; 80053; 82652; 82947; 84439; 84443; 84480; 84481; 84550; 84590; 84630; 85025

== ENCOUNTER 2019-01-16 09:50 | Emergency (ER) | payer OTHER, MEDICAID ==
--- NOTE | 2019-01-16 10:10 | ER Document Report ---
ED Medical Screen (RME) - General Chief Complaint: Palpitations Stated Complaint: IRREGULAR HEARTBEAT Time Seen by Provider: 01/16/19 10:01 Primary Care Provider: QUIRINO CURRY PA [Primary Care Provider] - Follow up as needed Mode of Arrival: Wheelchair Information source: Patient, Parent Notes: Patient presents after having an episode of palpitations and possible syncopal episode. Patient denies any chest discomfort. Patient's mother states she found her on the floor not responding to her although did have her eyes open. Mother denies any history of seizures. Patient does have a cardiac loop recorder. hx: ASD repair, cholecystectomy, tonsils and adenoids, Down syndrome I have greeted and performed a rapid initial assessment of this patient. A comprehensive ED assessment and evaluation of the patient, analysis of test results and completion of the medical decision making process will be conducted by additional ED providers. TRAVEL OUTSIDE OF THE [place] IN LAST 30 DAYS: No - Related Data Allergies/Adverse Reactions: Sulfa (Sulfonamide Antibiotics) Allergy (Verified 01/16/19 09:53) Past Medical History Neurological Medical History: Reports: Hx Seizures Endocrine Medical History: Reports: Hx Hypothyroidism Renal/ Medical History: Denies: Hx Peritoneal Dialysis GI Medical History: Reports: Hx Gastroesophageal Reflux Disease Past Surgical History: Reports: Hx Cardiac Surgery, Hx Cholecystectomy, Hx Myringotomy, Hx Tonsillectomy - T&A Physical Exam - Respiratory Respiratory status: No respiratory distress Breath sounds: Normal - Cardiovascular Rhythm: Regular Heart sounds: S1 appreciated, S2 appreciated Doctor's Discharge - Discharge Referrals: QUIRINO CURRY PA [Primary Care Provider] - Follow up as needed
[2019-01-16] MEDS ORDERED: ASPIRIN 81 MG TABLET, CHEWABLE PO ONE (10:11)
--- NOTE | 2019-01-16 10:39 | RADIOLOGY REPORT (SQ) ---
EXAM DESCRIPTION: CHEST 2 VIEWS COMPLETED DATE/TIME: 01/16/2019 10:32 am REASON FOR STUDY: palpations COMPARISON: 09/26/2017 EXAM PARAMETERS: NUMBER OF VIEWS: two views TECHNIQUE: Digital Frontal and Lateral radiographic views of the chest acquired. RADIATION DOSE: NA LIMITATIONS: none FINDINGS: LUNGS AND PLEURA: No opacities, masses or pneumothorax. No pleural effusion. MEDIASTINUM AND HILAR STRUCTURES: No masses or contour abnormalities. HEART AND VASCULAR STRUCTURES: Cardiomegaly status post median sternotomy with implantable loop recor ayden. BONES: No acute findings. HARDWARE: None in the chest. OTHER: No other significant finding. IMPRESSION: Cardiomegaly without acute abnormality of the lungs. TECHNICAL DOCUMENTATION: JOB ID: [id number] [employer]- All Rights Reserved Reading location - IP/workstation name: [email or web address]
[2019-01-16 11:19] LABS: ABSOLUTE EOSINOPHILS # (AUTO) 0.1 10^3/uL (0.0-0.6); ABSOLUTE LYMPHOCYTES (AUTO) 1.2 10^3/uL (0.5-4.7); ABSOLUTE MONOCYTES (AUTO) 0.6 10^3/uL (0.1-1.4); ABSOLUTE NEUT (AUTO) 8.6 10^3/uL (1.7-8.2); EOSINOPHILS % (AUTO) 0.9 % (0-6); HEMATOCRIT 38.7 % (36.0-47.0); LYMPHOCYTES % (AUTO) 11.9 % (13-45); MEAN CORPUSCULAR HEMOGLOBIN 31.4 pg (27.0-33.4); MEAN CORPUSCULAR HGB CONC 33.6 g/dL (32.0-36.0); MEAN CORPUSCULAR VOLUME 94 fl (80-97); MONOCYTES % (AUTO) 5.3 % (3-13); PLATELET COUNT 255 10^3/uL (150-450); RED BLOOD COUNT 4.14 10^6/uL (3.72-5.28); RED CELL DISTRIBUTION WIDTH 15.8 % (11.5-14.0); SEGMENTED NEUTROPHILS % (AUTO) 81.9 % (42-78); TOTAL CELLS COUNTED % (AUTO) 100 %; WHITE BLOOD COUNT 10.5 10^3/uL (4.0-10.5)
[2019-01-16 11:40] LABS: ALANINE AMINOTRANSFERASE 20 U/L (9-52); ALBUMIN 3.9 g/dL (3.5-5.0); ALKALINE PHOSPHATASE 136 U/L (38-126); ANION GAP 9 (5-19); ASPARTATE AMINO TRANSFERASE 27 U/L (14-36); BILIRUBIN,DIRECT 0.3 mg/dL (0.0-0.4); BILIRUBIN,TOTAL 0.4 mg/dL (0.2-1.3); BLOOD UREA NITROGEN 12 mg/dL (7-20); CALCIUM 9.3 mg/dL (8.4-10.2); CARBON DIOXIDE 24 mmol/L (22-30); CHLORIDE 108 mmol/L (98-107); CREATINE KINASE 36 U/L (30-135); GLUCOSE 93 mg/dL (75-110); POTASSIUM 4.3 mmol/L (3.6-5.0); SODIUM 140.7 mmol/L (137-145); TOTAL PROTEIN 7.5 g/dL (6.3-8.2)
[2019-01-16 11:51] LABS: CREATINE KINASE MB < 0.22 ng/mL (<4.55); TROPONIN I < 0.012 ng/mL
--- NOTE | 2019-01-16 12:47 | ER Document Report ---
ED Cardiac - General Chief Complaint: Palpitations Stated Complaint: IRREGULAR HEARTBEAT Time Seen by Provider: 01/16/19 10:01 Primary Care Provider: QUIRINO CURRY PA [NO LOCAL MD] - Follow up as needed Mode of Arrival: Wheelchair Notes: 28-year-old female with Down syndrome to the emergency department after a brief episode altered mental status. Mother states that she has been having these episodes for quite some time. They have seen a neurologist and they do not think it is seizures however they are following cardiology as this may be a cardiac event because patient complains of her chest having a funny feeling when it happens. She has a [employer] implantable Reveal LINQ device to see if a abnormal rhythm can be caught. Mother states that she is back to her baseline but on the way here she had another episode where she looked pale and complained of chest pain. TRAVEL OUTSIDE OF THE [place] IN LAST 30 DAYS: No - HPI Patient complains to provider of: Chest pain, Chest tightness, Palpitations - Related Data Allergies/Adverse Reactions: Sulfa (Sulfonamide Antibiotics) Allergy (Verified 01/16/19 09:53) Past Medical History - General Information source: Patient, Parent - Social History Smoking Status: Unknown if Ever Smoked Cigarette use (# per day): No Frequency of alcohol use: None Drug Abuse: None Lives with: Family, Parents Family History: Reviewed & Not Pertinent Patient has suicidal ideation: No Patient has homicidal ideation: No Neurological Medical History: Reports: Hx Seizures Endocrine Medical History: Reports: Hx Hypothyroidism Renal/ Medical History: Denies: Hx Peritoneal Dialysis GI Medical History: Reports: Hx Gastroesophageal Reflux Disease Past Surgical History: Reports: Hx Cardiac Surgery, Hx Cholecystectomy, Hx Myringotomy, Hx Tonsillectomy - T&A Review of Systems - Review of Systems Notes: Constitutional: denies: Chills, Diaphoresis, Fever, Malaise, Weakness EENT: denies: Eye discharge, Blurred vision, Tearing, Double vision, Nose congestion, Nose discharge, Throat swelling, Mouth pain Cardiovascular: +Palpitations, +Heart racing,- Orthopnea,- Dyspnea, +Chest pain Respiratory: denies: Cough, Hurts to breathe, Wheezing, Shortness of breath Gastrointestinal: denies: Abdominal pain, Diarrhea, Nausea, Vomiting, Black stools, bright red blood in stool Genitourinary: denies: Burning, Dysuria, Discharge, Frequency, Flank pain, Hematuria Musculoskeletal: denies: Joint pain, Joint swelling, Muscle pain, Muscle stiffness, back pain Hematologic/Lymphatic: denies: Anemia, Easy bleeding, Easy bruising, Blood clots Neurological/Psychological: denies: Confusion, Dementia, Depression, brief altered mental status reported. Skin: No lesions, no masses, no skin breakdown, no abscesses Physical Exam - Vital signs Vitals: Temp Pulse Resp BP Pulse Ox 97.8 F 74 16 90/63 L 98 01/16/19 10:10 01/16/19 10:10 01/16/19 10:10 01/16/19 10:10 01/16/19 10:10 Interpretation: Normal - Notes Notes: Appearance consistent with syndrome genetic anomaly commonly known as Down syndrome. - General General appearance: Appears well, Alert - HEENT Head: Normocephalic, Atraumatic Eyes: Normal Pupils: PERRL - Respiratory Respiratory status: No respiratory distress Chest status: Nontender Breath sounds: Normal Chest palpation: Normal - Cardiovascular Rhythm: Regular Heart sounds: Normal auscultation Murmur: No - Abdominal Inspection: Normal Distension: No distension Bowel sounds: Normal Tenderness: Nontender Organomegaly: No organomegaly - Back Back: Normal, Nontender - Extremities General upper extremity: Normal inspection, Nontender, Normal color, Normal ROM, Normal temperature General lower extremity: Normal inspection, Nontender, Normal color, Normal ROM, Normal temperature, Normal weight bearing. No: Natan's sign - Neurological Neuro grossly intact: Yes Cognition: Normal Orientation: AAOx4 [place] Coma Scale Eye Opening: Spontaneous [place] Coma Scale Verbal: Oriented [place] Coma Scale Motor: Obeys Commands [place] Coma Scale Total: 15 Speech: Normal Motor strength normal: LUE, RUE, LLE, RLE Sensory: Normal - Psychological Associated symptoms: Normal affect, Normal mood - Skin Skin Temperature: Warm Skin Moisture: Dry Skin Color: Normal Course - Re-evaluation Re-evalutation: 01/16/19 12:45 Initial EKG was questionable atrial fibrillation. I believe that there was motion artifact leading to this concern. A repeat EKG was obtained. EKG shows a right bundle branch block with a left anterior fascicular block which is consistent with previous EKGs. There is no immediate signs of ischemia. I do not believe patient's EKG is interpreted correctly by the computer. She has an implantable cardiac device which should record any events. This will need to be followed by her business analysis analyst. She has chronic hypothyroidism with elevated TSH. Still elevated today. Chest x-ray reveals cardiomegaly but no signs of congestive heart failure. EKG unchanged from prior. I have added freeT3-T4. Cardiac labs are unremarkable. When likely patient can be discharged in stable condition. Awaiting urinalysis results. 01/16/19 12:46 01/16/19 14:32 Maker was interrogated. There was no abnormal rhythm found on the 2 times that the event was recorded. Work-up today is fairly unremarkable. TSH is grossly elevated so the T3 and T4 is added however I do not feel like we need to keep her here for the results. She needs to follow-up with her primary care doctor to manage her thyroid more effectively however in the setting of Down syndrome TSH is always going to be elevated and whether or not you should or not remains to be seen. She would benefit seeing a syndromic specialist. 01/16/19 14:35 Laboratory 01/16/19 01/16/19 01/16/19 11:06 11:06 11:06 WBC 10.5 RBC 4.14 Hgb 13.0 Hct 38.7 MCV 94 MCH 31.4 MCHC 33.6 RDW 15.8 H Plt Count 255 Seg Neutrophils % 81.9 H Lymphocytes % 11.9 L Monocytes % 5.3 Eosinophils % 0.9 Basophils % 0.0 Absolute Neutrophils 8.6 H Absolute Lymphocytes 1.2 Absolute Monocytes 0.6 Absolute Eosinophils 0.1 Absolute Basophils 0.0 Sodium 140.7 Potassium 4.3 Chloride 108 H Carbon Dioxide 24 Anion Gap 9 BUN 12 Creatinine 0.83 Est GFR ( Amer) > 60 Est GFR (Non-Af Amer) > 60 Glucose 93 Calcium 9.3 Magnesium 1.9 Total Bilirubin 0.4 Direct Bilirubin 0.3 Neonat Total Bilirubin Not Reportable Neonat Direct Bilirubin Not Reportable Neonat Indirect Bili Not Reportable AST 27 ALT 20 Alkaline Phosphatase 136 H Creatine Kinase 36 CK-MB (CK-2) Troponin I Total Protein 7.5 Albumin 3.9 TSH Serum HCG, Qual NEGATIVE Urine Color Urine Appearance Urine pH Ur Specific [place] Urine Protein Urine Glucose (UA) Urine Ketones Urine Blood Urine Nitrite Urine Bilirubin Urine Urobilinogen Ur Leukocyte Esterase Urine WBC (Auto) Urine RBC (Auto) Squamous Epi Cells Auto Urine Mucus (Auto) Urine Ascorbic Acid 01/16/19 01/16/19 01/16/19 11:06 11:06 12:20 WBC RBC Hgb Hct MCV MCH MCHC RDW Plt Count Seg Neutrophils % Lymphocytes % Monocytes % Eosinophils % Basophils % Absolute Neutrophils Absolute Lymphocytes Absolute Monocytes Absolute Eosinophils Absolute Basophils Sodium Potassium Chloride Carbon Dioxide Anion Gap BUN Creatinine Est GFR ( Amer) Est GFR (Non-Af Amer) Glucose Calcium Magnesium Total Bilirubin Direct Bilirubin Neonat Total Bilirubin Neonat Direct Bilirubin Neonat Indirect Bili AST ALT Alkaline Phosphatase Creatine Kinase CK-MB (CK-2) < 0.22 Troponin I < 0.012 Total Protein Albumin TSH 14.80 H Serum HCG, Qual Urine Color STRAW Urine Appearance CLEAR Urine pH 6.0 Ur Specific [place] 1.009 Urine Protein NEGATIVE Urine Glucose (UA) NEGATIVE Urine Ketones NEGATIVE Urine Blood NEGATIVE Urine Nitrite NEGATIVE Urine Bilirubin NEGATIVE Urine Urobilinogen NEGATIVE Ur Leukocyte Esterase NEGATIVE Urine WBC (Auto) 1 Urine RBC (Auto) 0 Squamous Epi Cells Auto 3 Urine Mucus (Auto) RARE Urine Ascorbic Acid 40 H - Vital Signs Vital signs: Temp Pulse Resp BP Pulse Ox 97.8 F 98 20 108/47 L 98 01/16/19 10:10 01/16/19 11:06 01/16/19 14:00 01/16/19 12:36 01/16/19 14:00 - Laboratory Result Diagrams: 01/16/19 11:06 01/16/19 11:06 Laboratory results interpreted by me: 01/16/19 01/16/19 01/16/19 11:06 11:06 11:06 RDW 15.8 H Seg Neutrophils % 81.9 H Lymphocytes % 11.9 L Absolute Neutrophils 8.6 H Chloride 108 H Alkaline Phosphatase 136 H TSH 14.80 H Urine Ascorbic Acid 01/16/19 12:20 RDW Seg Neutrophils % Lymphocytes % Absolute Neutrophils Chloride Alkaline Phosphatase TSH Urine Ascorbic Acid 40 H - EKG Interpretation by Ks EKG shows normal: Sinus rhythm, [place], QRS Complexes, ST-T Waves [place]/QRS: RBBB When compared to previous EKG there are: No significant change Discharge - Discharge Clinical Impression: Palpitations Hypothyroidism Qualifiers: Hypothyroidism type: unspecified Qualified Code(s): E03.9 - Hypothyroidism, unspecified Condition: Good Disposition: HOME, SELF-CARE Instructions: Palpitations (Irregular or Rapid Heartrate) ([facility]), Hypothyroidism ([facility]) Additional Instructions: Please follow-up with your primary care doctor for adjustment of your thyroid. Your TSH was 14 today. Please notify your primary care doctor that free T3 and free T4 were ordered and were not resulted yet. More than likely your daughter will need to go up on her thyroid hormone. Please make an appointment to follow-up with your business analysis analyst. In the event that symptoms are getting worse please return for repeat evaluation. Referrals: QUIRINO CURRY PA [NO LOCAL MD] - Follow up as needed HILDA MIMS MD [NO LOCAL MD] - Follow up as needed
[2019-01-16 12:58] LABS: APPEARANCE,URINE CLEAR; BILIRUBIN,URINE NEGATIVE (NEGATIVE); COLOR,URINE STRAW; GLUCOSE, URINE NEGATIVE (NEGATIVE); KETONES,URINE NEGATIVE (NEGATIVE); LEUKOCYTE ESTERASE,URINE NEGATIVE (NEGATIVE); NITRITE,URINE NEGATIVE (NEGATIVE); PROTEIN,URINE NEGATIVE (NEGATIVE); URINE SPECIFIC GRAVITY 1.009; UROBILINOGEN,URINE NEGATIVE mg/dL (<2.0)
--- NOTE | 2019-01-16 13:32 | EKG REPORT ---
SEVERITY:- ABNORMAL ECG - SINUS RHYTHM RBBB AND LAFB : Confirmed by: Richard Barrios MD 16-Jan-2019 13:32:23
--- NOTE | 2019-01-16 13:33 | EKG REPORT ---
SEVERITY:- ABNORMAL ECG - ATRIAL FIBRILLATION RBBB AND LAFB PROBABLE LVH WITH SECONDARY REPOL ABNRM : Confirmed by: Richard Barrios MD 16-Jan-2019 13:32:44
[2019-01-16 14:55] VITALS: BP 116/71
== END 2019-01-16 15:01 | disposition home or self-care (01) ==
LOC: ER 09:50
DX: R00.2 Palpitations (principal); E03.9 Hypothyroidism, unspecified; I45.2 Bifascicular block; R07.89 Other chest pain; Q90.9 Down syndrome, unspecified; Z95.818 Presence of other cardiac implants and grafts; Z88.2 Allergy status to sulfonamides
CPT/HCPCS: 36415; 71046; 80053; 81001; 82550; 82553; 83735; 84443; 84484; 84703; 85025; 87086; 87088; 87186; 93005; 93010; 99285

== ENCOUNTER 2020-01-24 20:11 | Emergency (ER) | payer OTHER, MEDICAID ==
--- NOTE | 2020-01-24 21:16 | ER Document Report ---
ED Medical Screen (RME) - General Chief Complaint: Skin Problem Stated Complaint: LOW BLOOD PRESSURE Time Seen by Provider: 01/24/20 21:13 Primary Care Provider: JOSE FAGAN MD [Primary Care Provider] - Follow up as needed Mode of Arrival: Ambulatory Information source: Patient, Parent Notes: 29-year-old female presents the ED for fluctuating blood pressures which mother states are chronic with multiple toes that are turning "purple "starting this morning. This is a Down syndrome patient who has some learning disabilities and some heart defects. She is on a loop recorder that has not recorded any abnormalities during these episodes. Blood pressures are stable at this time. Pedal pulses are present and palpable. Patient is alert and acting her normal self. She denies any pain or discomfort to her foot or chest. Lungs are clear respirations regular nonlabored. Did consult Dr. Wallace and he stated he would like EKG and blood work and chest x-ray completed. I have greeted and performed a rapid initial assessment of this patient. A comprehensive ED assessment and evaluation of the patient, analysis of test results and completion of medical decision making process will be conducted by an additional ED providers. TRAVEL OUTSIDE OF THE [place] IN LAST 30 DAYS: No - Related Data Allergies/Adverse Reactions: Sulfa (Sulfonamide Antibiotics) Allergy (Verified 01/16/19 09:53) Home Medications: welchol. synthroid. BCP. allergy med x2. vitamin C, D Past Medical History Neurological Medical History: Reports: Hx Seizures Endocrine Medical History: Reports: Hx Hypothyroidism Renal/ Medical History: Denies: Hx Peritoneal Dialysis GI Medical History: Reports: Hx Gastroesophageal Reflux Disease Past Surgical History: Reports: Hx Cardiac Surgery, Hx Cholecystectomy, Hx Myringotomy, Hx Tonsillectomy - T&A Physical Exam - Vital signs Vitals: Temp Pulse Resp BP Pulse Ox 98.0 F 90 16 144/92 H 100 01/24/20 20:18 01/24/20 20:18 01/24/20 20:18 01/24/20 20:18 01/24/20 20:18 Course - Vital Signs Vital signs: Temp Pulse Resp BP Pulse Ox 98 F 90 16 144/92 H 100 01/24/20 21:05 01/24/20 20:18 01/24/20 20:18 01/24/20 20:18 01/24/20 20:18 Doctor's Discharge - Discharge Referrals: JOSE FAGAN MD [Primary Care Provider] - Follow up as needed
--- NOTE | 2020-01-24 22:16 | ER Document Report ---
ED General - General Chief Complaint: Skin Problem Stated Complaint: LOW BLOOD PRESSURE Time Seen by Provider: 01/24/20 21:13 Primary Care Provider: JOSE FAAGN MD [Primary Care Provider] - Follow up as needed Mode of Arrival: Ambulatory TRAVEL OUTSIDE OF THE [place] IN LAST 30 DAYS: No - HPI Notes: Patient is a 29-year-old female with a history of Down syndrome, brought into the emergency department for evaluation of a purple toe. Mom states that this morning patient's blood pressure was highly variable, but states that is normal for her. Systolics ranged from 95-1 10. During that period of time the patient seemed to have less energy per mother. Later, while sitting on the couch, mom noted that her right third toe had become purple on one half of it. She took pictures. She was afebrile to this. Her heart rate and blood pressure were s table throughout this. Mom noticed that it was cool to the touch, and brought her here for further evaluation. The patient has a loop recorder in place. She was seen by cardiology last week. Everything has remained stable per mother. - Related Data Allergies/Adverse Reactions: Sulfa (Sulfonamide Antibiotics) Allergy (Verified 01/16/19 09:53) Home Medications: welchol. synthroid. BCP. allergy med x2. vitamin C, D Past Medical History - General Information source: Patient, Parent - Social History Smoking Status: Never Smoker Family History: Reviewed & Not Pertinent Patient has homicidal ideation: No - Medical History Medical History: Other - Down Syndrome Neurological Medical History: Reports: Hx Seizures Endocrine Medical History: Reports: Hx Hypothyroidism Renal/ Medical History: Denies: Hx Peritoneal Dialysis GI Medical History: Reports: Hx Gastroesophageal Reflux Disease Past Surgical History: Reports: Hx Cardiac Surgery, Hx Cholecystectomy, Hx Myringotomy, Hx Tonsillectomy - T&A Review of Systems - Review of Systems Constitutional: See HPI Skin: See HPI -: Yes All other systems reviewed and negative Physical Exam - Vital signs Vitals: Temp Pulse Resp BP Pulse Ox 98.0 F 90 16 144/92 H 100 01/24/20 20:18 01/24/20 20:18 01/24/20 20:18 01/24/20 20:18 01/24/20 20:18 - Notes Notes: This is a 29-year-old female who appears her stated age. She has Down's facies, cheerful, cooperative with examiner. Head is normocephalic and atraumatic, pupils are equal round, reactive to light. Oral mucosa is moist. Heart is regular rate and rhythm, no murmur noted. Lungs are clear to auscultation bilaterally. Abdomen is obese, nontender, normoactive bowel sounds. Extremities without cyanosis, clubbing, edema. No posterior calf tenderness. Examination of the extremities yields him to be very cool to the touch. She has dusky appearance of the right fourth toe, blanches with pressure. Capillary refill of 2-3 seconds. Dorsalis pedis pulses mildly diminished but symmetrical, easily palpated. Patient has reticular dusky appearing rash to upper extremities, particularly over the dorsums of the hand. Radial pulses are equally and easily palpable. Capillary refill is brisk. Course - Re-evaluation Re-evalutation: 01/24/20 22:16 Patient presents to the emergency department for evaluation. She had laboratory investigations ordered, EKG ordered. I did add coags. I am concerned about decreased perfusion, but the patient does have a palpable dorsalis pedis pulse. The phenomenon of COVID toes is also on the differential, so order placed for COVID-19 testing. Awaiting further lab investigations, we will continue to monitor. 01/25/20 00:37 Patient has remained stable. Blood work is unremarkable. She still has easily palpable dorsalis pedis pulses. I do not have arterial Doppler available, do not think this is emergent, but do believe it needs close follow-up. The patient's primary care provider is not on-call this weekend. I will consult [facility] vascular surgery to discuss any further management if they believe it to be necessary. Attempt to consult vascular at [facility] was made initially at 0010. Awaiting phone call. 01/25/20 00:[address] NELSON, vascular surgeon at [facility]. He agrees that nothing needs to be done emergently about this and outpatient follow-up would be appropriate. I counseled the mother on palpation of pulse, watching for worsening of symptoms, and indications to return. She voiced understanding and the patient will be discharged. - Vital Signs Vital signs: Temp Pulse Resp BP Pulse Ox 98 F 90 16 144/92 H 100 01/24/20 21:05 01/24/20 20:18 01/24/20 20:18 01/24/20 20:18 01/24/20 20:18 - Laboratory Result Diagrams: 01/24/20 22:25 01/24/20 22:25 Laboratory results interpreted by me: 01/24/20 01/24/20 01/24/20 20:58 22:25 22:25 WBC 10.7 H RDW 15.9 H Alkaline Phosphatase 132 H Urine Ascorbic Acid 20 H - EKG Interpretation by Me Additional EKG results interpreted by me: 01/24/20 22:18 Sinus mechanism with a rate of 81 bpm. Left axis deviation. Right bundle branch block. Left anterior hemiblock. Prolonged QT interval, which is new. No other change from prior study. Discharge - Discharge Clinical Impression: dusky toe Condition: Stable Disposition: HOME, SELF-CARE Additional Instructions: No clear reason was found for the purple discoloration of the toe today. You have been tested for COVID-19. You should be quarantined, as well as anyone in your household, until results are obtained. If she develops pain, worsening purple discoloration, spread of this purple discoloration to other toes, or any other new or concerning symptoms, please return immediately to the emergency department for evaluation. Otherwise, follow-up with Dr. Fagan first thing Monday morning, and consider referral on to vascular. Referrals: JOSE FAGAN MD [Primary Care Provider] - Follow up as needed
[2020-01-24 22:26] LABS: APPEARANCE,URINE CLEAR; BILIRUBIN,URINE NEGATIVE (NEGATIVE); COLOR,URINE STRAW; GLUCOSE, URINE NEGATIVE (NEGATIVE); KETONES,URINE NEGATIVE (NEGATIVE); LEUKOCYTE ESTERASE,URINE NEGATIVE (NEGATIVE); NITRITE,URINE NEGATIVE (NEGATIVE); PROTEIN,URINE NEGATIVE (NEGATIVE); URINE SPECIFIC GRAVITY 1.008; UROBILINOGEN,URINE NEGATIVE mg/dL (<2.0)
--- NOTE | 2020-01-24 22:35 | RADIOLOGY REPORT (SQ) ---
EXAM DESCRIPTION: XR CHEST 2 VIEWS COMPLETED DATE/TME: 01/24/2020 21:14 CLINICAL HISTORY: 29 years, Female, Fluctuating blood pressure, purple toes COMPARISON: 01/16/2019 chest NUMBER OF VIEWS: 2 TECHNIQUE: 2 views of the chest LIMITATIONS: None. FINDINGS: The heart is enlarged but stable. Stable postsurgical change. Lungs are clear. No pneumothorax IMPRESSION: No acute cardiopulmonary process copyright 2010 [employer]- All Rights Reserved
[2020-01-24 22:40] LABS: ABSOLUTE EOSINOPHILS # (AUTO) 0.1 10^3/uL (0.0-0.6); ABSOLUTE LYMPHOCYTES (AUTO) 1.8 10^3/uL (0.5-4.7); ABSOLUTE MONOCYTES (AUTO) 0.7 10^3/uL (0.1-1.4); ABSOLUTE NEUT (AUTO) 8.1 10^3/uL (1.7-8.2); BASOPHILS % (AUTO) 0.2 % (0-2); EOSINOPHILS % (AUTO) 0.9 % (0-6); HEMATOCRIT 39.5 % (36.0-47.0); HEMOGLOBIN 13.3 g/dL (12.0-15.5); LYMPHOCYTES % (AUTO) 16.7 % (13-45); MEAN CORPUSCULAR HEMOGLOBIN 31.7 pg (27.0-33.4); MEAN CORPUSCULAR HGB CONC 33.7 g/dL (32.0-36.0); MEAN CORPUSCULAR VOLUME 94 fl (80-97); MONOCYTES % (AUTO) 6.1 % (3-13); PLATELET COUNT 254 10^3/uL (150-450); RED CELL DISTRIBUTION WIDTH 15.9 % (11.5-14.0); SEGMENTED NEUTROPHILS % (AUTO) 76.1 % (42-78); TOTAL CELLS COUNTED % (AUTO) 100 %; WHITE BLOOD COUNT 10.7 10^3/uL (4.0-10.5)
[2020-01-24 22:45] LABS: ALBUMIN 3.9 g/dL (3.5-5.0); ALKALINE PHOSPHATASE 132 U/L (38-126); ANION GAP 5 (5-19); ASPARTATE AMINO TRANSFERASE 29 U/L (14-36); BILIRUBIN,TOTAL 0.3 mg/dL (0.2-1.3); BLOOD UREA NITROGEN 11 mg/dL (7-20); CALCIUM 8.9 mg/dL (8.4-10.2); CARBON DIOXIDE 25 mmol/L (22-30); CHLORIDE 107 mmol/L (98-107); GLUCOSE 103 mg/dL (75-110); POTASSIUM 4.8 mmol/L (3.6-5.0); TOTAL PROTEIN 7.3 g/dL (6.3-8.2)
[2020-01-24 22:48] LABS: INTERNATIONAL RATION (INR) 0.96; PROTHROMBIN TIME 12.8 SEC (11.4-15.4)
[2020-01-25 01:32] VITALS: BP 138/77
--- NOTE | 2020-01-25 09:45 | EKG REPORT ---
SEVERITY:- ABNORMAL ECG - SINUS RHYTHM RBBB AND LAFB LVH BY VOLTAGE : Confirmed by: Mirtha Treviño MD 25-Jan-2020 09:45:10
== END 2020-01-25 01:24 | disposition home or self-care (01) ==
LOC: ER 20:11
DX: R23.0 Cyanosis (principal); I95.9 Hypotension, unspecified; Q90.9 Down syndrome, unspecified; Z88.2 Allergy status to sulfonamides; Z79.899 Other long term (current) drug therapy; E66.9 Obesity, unspecified; Z20.828 Contact with and (suspected) exposure to other viral communicable diseases
CPT/HCPCS: 93005; 99285; 36415; 85025; 85610; 85730; 87635; 80053; 81001; 71046; 93010; C9803